=== PATIENT | male | born 1995 | race Caucasian/White ===

== ENCOUNTER 2021-07-15 00:07 | Observation (INO) | payer OTHER, SELFPAY ==
--- NOTE | ~2021-07-15 | CT_ITS ---
EXAMINATION: CT abdomen pelvis wo con DATE: 07/15/2021 01:30 INDICATION: Bilateral flank pain. Low abdominal pain. TECHNIQUE: Computed tomography (CT) of the abdomen and pelvis was performed without intravenous contr ast. Automated exposure control and iterative reconstruction technique were employed. The dose-length product was 515.79 mGy-cm. COMPARISON: CT pelvis 05/06/2018 FINDINGS: The visualized portions of the lung bases are clear without pneumonia or pleural effusion. The heart size is normal. No pericardial effusion. A calcification in the liver is consistent with ol d granulomatous disease. The gallbladder, spleen, pancreas, adrenal glands, and kidneys are normal. T here is no urolithiasis. There are no dilated loops of bowel. The appendix measures 10 mm in diameter and contains fluid and gas, increased in size from 7 mm on 05/06/2018. No fat stranding around the ap pendix. There are no pathologically enlarged lymph nodes. There is no free intraperitoneal fluid. The bones are unremarkable. IMPRESSION: 1. Appendiceal diameter of 10 mm, which is indeterminate for acute appendicitis. Reviewed, dictated and finalized at location A. IMPRESSION: 1. Appendiceal diameter of 10 mm, which is indeterminate for acute appendicitis .
[2021-07-15 00:10] VITALS: BP 158/101; PULSE 104; RESP 18; TEMP 36.3; O2SAT 99
[2021-07-15 00:37] LABS: Basophils Absolute Auto 0.1 K/mm3 (0.0-0.1); Basophils Percent Auto 0.5 % (0.2-1.2); Eosinophils Absolute Auto 0.3 K/mm3 (0-0.3); Eosinophils Percent Auto 1.9 % (0-4.4); Hematocrit 41.4 % (42.0-52.0); Hemoglobin 14.4 g/dL (14.0-18.0); Immature Granulocyte Absolute 0.06 K/mm3 (0.00-0.031); Immature Granulocyte Percent A 0.4 % (0-0.5); Lymphocytes Absolute Auto 4.26 K/mm3 (0.9-3.2); Lymphocytes Percent Auto 29.6 % (18.3-44.2); Mean Corpuscular HGB Conc 34.8 g/dl (32-36); Mean Corpuscular Volume 83.5 fl (80-100); Mean Platelet Volume 8.9 fl (7.4-10.4); Monocytes Absolute Auto 0.8 K/mm3 (0.1-0.6); Monocytes Percent Auto 5.7 % (2.6-8.5); Neutrophils Absolute Auto 8.9 K/mm3 (1.3-6.7); Neutrophils Percent Auto 61.9 % (45.5-73.1); Platelet Count Result 249 k/mm3 (150-375); Red Blood Count 4.96 M/mm3 (4.6-6.20); Red Cell Distribution Width 12.4 % (11.5-14.5); White Blood Count 14.4 K/mm3 (4.5-10.0)
[2021-07-15 00:48] LABS: Alanine Aminotransferase 35 U/L (4-50); Albumin Level 4.6 g/dL (3.5-5.1); Alkaline Phosphatase 69 U/L (38-126); Anion Gap 8 mmol/L (8-16); Aspartate Amino Transferase 26 U/L (17-59); Bilirubin,Total 0.2 mg/dL (0.2-1.3); Blood Urea Nitrogen 16 mg/dL (9-20); Calcium 9.1 mg/dL (8.4-10.2); Carbon Dioxide 28 mmol/L (22-30); Chloride 104 mmol/L (98-107); Estimated CRCL calculation 107 ml/min; Estimated Glomerular Filt Rate > 60; Glucose 102 mg/dL (65-110); Lipase 59 U/L (23-300); Potassium 3.9 mmol/L (3.4-5.0); Sodium 140 mmol/L (137-145)
[2021-07-15 00:50] LABS: Add Urine Microscopic? YES; Appearance Urine Clear (Clear); Bacteria Urine Trace /hpf; Bilirubin Urine Negative (Negative); Blood Urine 2+ (Negative); Color Urine Yellow (Yellow); Glucose Urine UA Negative (Negative); Ketones Urine Trace mg/dL (Negative); Leukocyte Esterase Ur Negative LEU/UL (Negative); Nitrate Urine Negative (Negative); Protein Urine Negative (Negative); Urobilinogen Urine Negative mg/dL (<2.0); WBC Urine 0-3 /hpf
--- NOTE | 2021-07-15 00:56 | PC.NURSE ---
Pt reports generalized abd discomfort after eating dinner tonight. Pt also reports dark stools starting today. Pt denies N/V, but states in waiting room he forced himself to vomit.
[2021-07-15 01:01] VITALS: BP 153/88; PULSE 98; RESP 16; O2SAT 100
[2021-07-15 02:45] VITALS: BP 124/82; PULSE 95; RESP 15; O2SAT 100
--- NOTE | 2021-07-15 02:55 | ED.GENADULT ---
HPI - General Adult General Chief complaint: Abdominal Pain Stated complaint: ABD pain Time Seen by Provider: 07/15/21 00:59 History of Present Illness HPI narrative: Patient is a 26-year-old male who presents the ER with abdominal pain. Began this evening after going out for her birthday dinner. He ate some greasy meat on tamiko bread and also had a couple beers. Afterwards he began to get stomach cramping and bloating. He is unsure if he needed to have a bowel movement so he went to the bathroom but it did not help. He also tried to induce vomiting which did not help his discomfort. Symptoms began epigastrium has begun to move down to his lower abdomen. He feels cramping in his lower midline abdomen at this time. Some referral into the back. No urinary frequency urgency or dysuria. No fevers or chills or sweats. Related Data Home Medications Medication Instructions Recorded Confirmed No Home Medications 07/15/21 07/15/21 Allergies Allergy/AdvReac Type Severity Reaction Status Date / Time No Known Allergies Allergy Verified 07/15/21 01:02 Review of Systems Review of Systems: All systems reviewed & are unremarkable except as noted in HPI and below Constitutional: Constitutional: Denies chills, Denies fever(s) and Denies weakness ENT: Denies nasal congestion and Denies sore throat Cardiovascular: Cardiovascular: Denies chest pain, Denies rapid heart rate and Denies radiating jaw, neck or arm pain Respiratory: Respiratory: Denies cough and Denies dyspnea Gastrointestinal: Gastrointestinal: Reports abdominal pain, Reports bloating, Denies constipation, Denies diarrhea, Reports nausea and Denies vomiting Genitourinary: Genitourinary: Denies dysuria and Denies urinary frequency Musculoskeletal: Musculoskeletal: Denies back pain and Denies muscle cramps PMFSH Past Medical History Medical History (Updated 07/15/21 @ 03:53 by Eze Cano MD) Healthy adult male Surgical History Surgical History (Updated 07/15/21 @ 03:46 by Eze Cano MD) No pertinent past surgical history Social History Social History (Updated 07/15/21 @ 03:47 by Eze Cano MD) Alcohol intake: current Alcohol use details: social Exam Narrative: GENERAL: Well-appearing, well-nourished, and in no acute distress. HEAD: Normocephalic, atraumatic. ENT: Mucous membranes moist. CHEST: Clear to auscultation. No respiratory distress. HEART: Regular rate and rhythm. Normal peripheral pulses. ABDOMEN: Soft, nontender, nondistended. EXTREMITIES: Normal range of motion. No edema. SKIN: Warm, dry, no rash. NEURO: Alert and oriented x3. PSYCH: Normal mood and affect. Course Course Emergency Course: Patient informed of results. No McBurney's point tenderness but patient is still reporting low abdominal discomfort. Discussed with general surgery. Will admit for observation, IV antibiotics, and keep n.p.o. May require operative procedure in the a.m. Vital Signs Vital signs: Vital Signs Temperature 97.3 F L 07/15/21 00:10 Pulse Rate 104 H 07/15/21 00:10 Respiratory Rate 18 07/15/21 00:10 Blood Pressure 158/101 H 07/15/21 00:10 Pulse Oximetry 99 07/15/21 00:10 Temperature 97.3 F L 07/15/21 00:10 Pulse Rate 95 07/15/21 02:45 Respiratory Rate 15 07/15/21 02:45 Blood Pressure 124/82 07/15/21 02:45 Pulse Oximetry 100 07/15/21 02:45 Medical Decision Making Vital Signs Vital Signs: Vital Signs Temperature 97.3 F L 07/15/21 00:10 Pulse Rate 104 H 07/15/21 00:10 Respiratory Rate 18 07/15/21 00:10 Blood Pressure 158/101 H 07/15/21 00:10 Pulse Oximetry 99 07/15/21 00:10 Temperature 97.3 F L 07/15/21 00:10 Pulse Rate 95 07/15/21 02:45 Respiratory Rate 15 07/15/21 02:45 Blood Pressure 124/82 07/15/21 02:45 Pulse Oximetry 100 07/15/21 02:45 Lab Data Result diagrams: 07/15/21 00:24 07/15/21 00:24 Labs: Lab Re
[2021-07-15] MEDS: ERTAPENEM 1 GM/NS 50 ML 1 GM/50 ML BAG IVPB (03:37)
--- NOTE | 2021-07-15 04:23 | ADMGEN ---
This patient, Chino Alvarado, was admitted to 3 Medical Room 347-. Patient/family oriented to hospital policies and general routines including ID bracelet, bed and alarms, visiting hours, pain management, procedures, bathroom and other care routines, personal items, smoking policy, room service/diet, and visiting hours. Information on how to activate the Rapid Response Team has been discussed. Patient/Family are encouraged to report perceived risks to care and to ask questions if they do not understand what they are told or what they should do.
[2021-07-15 04:25] VITALS: BMI 26.5
[2021-07-15 04:26] VITALS: BP 119/53; PULSE 78; RESP 18; TEMP 36.4; O2SAT 98
[2021-07-15] MEDS: SODIUM CHLORIDE 0.9% IV 1,000 ML 125 ML IV CONT (04:33)
--- NOTE | 2021-07-15 07:40 | PM.IMHP ---
H&P: HPI History of Present Illness Date/Time: 07/15/21 07:40 Pt is a 26 y/o M presenting c abdominal pain starting acutely last night after eating dinner. Pt reports pain was mostly diffuse and crampy. Pt reports feeling bloated and full. Pt reports he had BM but pain did not get better. He also made himself throw up, but that also did not help. Pt denies any previous episodes. This am, pt reports no further pain and symptoms resolved. Chief Complaint: abdominal pain Review of Systems Constitutional: Constitutional: Denies anorexia, Denies chills, Denies fatigue, Denies fever(s), Denies increased appetite, Denies lethargy, Denies malaise, Denies poor appetite, Denies weakness, Denies weight gain and Denies weight loss Eyes: Eyes: Reports no additional eye complaints ENT: Reports system reviewed and no additional complaints, except as documented Cardiovascular: Cardiovascular: Reports no additional cardiovascular complaints Respiratory: Respiratory: Reports no additional respiratory complaints Gastrointestinal: Gastrointestinal: Reports as per HPI, Reports abdominal pain, Reports bloating, Reports GI cramping, Reports nausea and Reports vomiting Genitourinary: Genitourinary: Reports no additional male genitourinary complaints Musculoskeletal: Musculoskeletal: Reports no additional musculoskeletal complaints Integumentary/Breasts: Skin/Breast: Reports system reviewed and no additional complaints, except as docu Neurologic: Reports system reviewed and no additional complaints, except as documented Psychiatric: Psychiatric: Reports no additional psychiatric complaints Endocrine: Endocrine: Reports no additional endocrine complaints Hematologic/Lymphatic: Hematologic/Lymphatic: Reports no additional hematologic/lymphatic complaints Allergic/Immunologic: Allergic/Immunologic: Reports no additional allergic/immunologic complaints [facility] Past Medical History Medical History Healthy adult male Surgical History Surgical History No pertinent past surgical history Family History Family History Father Healthy adult Mother Healthy adult Social History Social History Smoking status: Never smoker Alcohol intake: current Drinks per week: 2 Alcohol use details: social Substance use: never Spiritual care concerns: No Meds Home Medications and Allergies Home Medications Medication Instructions Recorded Confirmed Type No Home Medications 07/15/21 07/15/21 History Allergies Allergy/AdvReac Type Severity Reaction Status Date / Time No Known Allergies Allergy Verified 07/15/21 04:38 Vital Signs Vital Signs - 24 hr 07/15/21 00:10 07/15/21 01:01 07/15/21 02:45 Temperature 36.3 C L Pulse Rate 104 H 98 95 Respiratory Rate 18 16 15 Blood Pressure 158/101 H 153/88 H 124/82 Pulse Oximetry 99 100 100 07/15/21 04:26 Temperature 36.4 C Pulse Rate 78 Respiratory Rate 18 Blood Pressure 119/53 L Pulse Oximetry 98 Exam Const: General: cooperative, healthy appearing, comfortable and no acute distress Nutritional Appearance: average body habitus Orientation/consciousness: patient oriented x3 Limitations: no limitations HENMT: Head: normal to inspection, normocephalic and atraumatic Ears: hearing grossly normal bilaterally General nose exam: Normal external nose present Face and sinus: normal facial exam Mouth: Yes Normal oral and palatal mucosa present and Yes moist mucous membranes Throat: posterior oropharynx normal Eyes: General: appearance normal, both eyes and all related structures Pupils: Equal, round and reactive pupils present EOM: EOMs intact bilaterally Neck: Neck: normal visual inspection, full ROM and no lymphadenopathy Chest: Chest palpation & ins
[2021-07-15 07:55] VITALS: O2SAT 98
--- NOTE | 2021-07-15 13:01 | PM.DS ---
DS: Admitting Diagnosis Discharge Date 07/15/2021 Admitting Diagnosis abdominal pain DS: Discharge Diagnosis Discharge Diagnosis (1) Abdominal pain: Code(s): R10.9 - Unspecified abdominal pain Status: Acute Assessment and Plan: resolved, iker diet, normal bowel fxn, f/u 2 wks DS: Summary Hospital Course Reason for hospitalization: abdminal pain Hospital Course: The patient is a 26-year-old male that presented to the emergency department complaining of severe abdominal pain. The patient reports the pain started acutely after having dinner and drinks last night. Evaluation in the emergency department, including imaging, showed a prominent appendix as well as mild leukocytosis. Given these findings, the patient was admitted for observation. On the morning of hospital day 1. , the patient reported all symptoms had resolved. He was able to tolerate a regular diet without issue. The patient was having normal bowel function and his abdominal exam was completely benign. He will now be discharged home and will follow up in 2 weeks. Status at Discharge Functional status at discharge: independent ambulation Overall status at discharge: patient is back to baseline Time Spent with Patient Time attestation: Total time spent providing and/or coordinating discharge services: Time spent: Less than 30 minutes Exam Const: General: cooperative, healthy appearing, comfortable and no acute distress Nutritional Appearance: average body habitus Orientation/consciousness: patient oriented x3 Limitations: no limitations Resp: Auscultation: clear to auscultation bilaterally Cardio: Rate: regular rate Rhythm: regular rhythm GI: Inspection: normal to inspection and non-distended GI Palp: Yes Soft to palpation, No Tenderness to palpation present (GI), No Guarding due to palpation present (GI) and No Rigid due to palpation DS: Data Data Completed and Pending Labs on day of discharge: Labs from last 24 hours 07/15/21 07/15/21 07/15/21 00:30 00:24 00:24 WBC 14.4 H RBC 4.96 Hgb 14.4 Hct 41.4 L MCV 83.5 MCH 29.0 MCHC 34.8 RDW 12.4 Plt Count 249 MPV 8.9 Immature Gran % (Auto) 0.4 Neut % (Auto) 61.9 Lymph % (Auto) 29.6 [place] % (Auto) 5.7 Eos % (Auto) 1.9 Baso % (Auto) 0.5 Lymph # (Auto) 4.26 H [place] # (Auto) 0.8 H Eos # (Auto) 0.3 Baso # (Auto) 0.1 Abs Immat Gran (auto) 0.06 H Absolute Neuts (auto) 8.9 H Absolute Nucleated RBC 0.0 Nucleated RBC % 0.0 Sodium 140 Potassium 3.9 Chloride 104 Carbon Dioxide 28 Anion Gap 8 BUN 16 Creatinine 1.00 Estim Creat Clear Calc 107 Estimated GFR > 60 Glucose 102 Calcium 9.1 Total Bilirubin 0.2 AST 26 ALT 35 Alkaline Phosphatase 69 Total Protein 8.0 Albumin 4.6 Lipase 59 Urine Color Yellow Urine Appearance Clear Urine pH 6.0 Ur Specific [place] 1.020 Urine Protein Negative Urine Glucose (UA) Negative Urine Ketones Trace Ur Blood (Man) 2+ H Urine Nitrate Negative Urine Bilirubin Negative Urine Urobilinogen Negative Leukocyte Esterase Rfl Negative Urine RBC 11-20 H Urine WBC 0-3 Urine Bacteria Trace Discharge Plan Discharge Attending physician on discharge: Avelina Cabrera Discharging Clinician: Avelina Cabrera Anticipated Discharge Date/Time: 07/15/21 13:00 Patient Disposition: Home, Self-Care Activity: as tolerated Diet: as tolerated Patient Instructions: Antibiotic Form Stand Alone Forms: General Discharge Information Follow-up/Referrals: Avelina Cabrera MD [Physician] - 2 Weeks Discharge Medications: Continued No Home Medications RF: 0 Date of admission: 07/15/21 03:12 Primary Care Provider: CHRISTIANO,ARIELLA Admitting Provider: Avelina Cabrera Attending physician on admission: Avelina Cabrera Condition: Stable
== END 2021-07-15 14:02 | disposition home or self-care (01) ==
LOC: ANHED 01:52 → ANH3MED 03:37
PROVIDERS: Admitting Provider Surgery; Emergency Provider Emergency Medicine; PCP Nurse Practitioner Family; Visit Provider Surgery
DX: R10.9 Unspecified abdominal pain (principal)
CPT/HCPCS: 36415; 74176; 80053; 81001; 83690; 85025; 96365; 96367; 99285; G0378; J0131; J1335; J2270; J7030